=== PATIENT | male | born 1950 | race Caucasian/White ===

== ENCOUNTER 2016-11-04 00:18 | Day surgery (SDC) | payer MEDICARE, OTHER ==
[2016-11-04] VITALS (12 sets, daily range): BP systolic 108–132; BP diastolic 45–78; PULSE 50–66; RESP 12–18; O2SAT 92–99
[~2016-11-04] VITALS: Ht 188 cm; Wt 70.4 kg
[~2016-11-04 00:18] MED LIST: 0.9% Sodium Chloride 1,000 ML IV ONE; ASCO500C6 PO; ASPI-973 PO; CALC650T4 PO; CHOL200047 PO; CLOP75TA3 PO; ISOS20TA4 PO; LACT1CAP65 PO; LYSI1TAB2 PO; METO25TA3 PO; NITR0.4T6 SL; POTASSIUM MAGNESIUM PO; [UNRECOGNIZED DRUG - OTHER] PO; [UNRECOGNIZED DRUG - OTHER] PO; immuplex PO
[2016-11-04] MEDS ORDERED: 0.9% Sodium Chloride 1,000 ML IV ONE (06:20)
[2016-11-04 07:25] LABS: BASOPHILS % (AUTO) 0.9 % (0-3); EOSINOPHILS % (AUTO) 5.9 % (0-5); MONOCYTES % (AUTO) 8.3 % (4-12); Mean Corpuscular Hemoglobin 26.6 pg (27.0-35.0); Mean Corpuscular Volume 81.5 fL (81-100); NEUTROPHILS % (AUTO) 39.7 % (40-74); Platelet Count 402 bil/L (150-400)
[2016-11-04] MEDS ORDERED: Heparin 1,000 Unit/mL 10 mL Inj ONE (08:06)
[2016-11-04] MEDS ORDERED: Heparin 1,000 Units/500 mL NS Premix IV ONE (08:06)
[2016-11-04] MEDS ORDERED: fentaNYL-PF 50 mCg/mL 2 mL Inj ONE ×2 (08:27→09:37)
[2016-11-04] MEDS ORDERED: Nitroglycerin 50,000 mcg/250 mL D5W Premix IV ONE (08:39)
[2016-11-04] MEDS ORDERED: Heparin 5,000 Units/500 mL NS Premix IV ONE (09:20)
--- NOTE | 2016-11-04 11:10 | DI95 ---
[address] [address] INTERVENTIONAL CARDIAC CATHETERIZATION PATIENT: FRANKLYN PERES : 1950 MR#: [id number] ADMIT: 11/04/2016 JOB ID: [id number] CORRECTED REPORT DATE OF PROCEDURE: 11/04/2016 PATIENT PROFILE: The patient is a 66 years old male with history of hypercholesterolemia and prior smoking. He had stent placement to the left anterior descending artery on January 02, 2015. The patient developed recurrent angina six months ago. He was found to have left anterior descending artery and first diagonal branch bifurcation stenoses by angiogram on June 10, 2016. The planned intervention was postponed several times due to lower GI bleed. PROCEDURE: 1. Retrograde left heart catheterization. 2. Selective coronary angiography. 3. Balloon angioplasty and stenting to the left anterior descending. 4. Left ventricular angiogram. VASCULAR CLOSURE DEVICE: Perclose. COMPLICATION: None. METHOD: Retrograde left heart catheterization was performed from the right groin under 1% lidocaine local anesthesia using a 6-Swiss sheath. Selective coronary angiogram was performed in multiple projections, including cranial and caudal angulations with hand-injected contrast via JL4 and 3DRC catheters. Heparin 100 units/kg were given. A 6-Swiss JL4 guide was advanced to the left coronary ostium. A Runthrough wire was placed inside the left anterior descending artery. The mid and proximal left anterior descending artery lesions were pre-dilated with a 2.0 and a 2.5 mm balloons. A Xience 3.0 x 18 mm stent was placed inside the mid left anterior descending artery lesion and deployed at 12 atmospheres for 25 seconds. A Xience 3.0 x 12 mm stent was placed inside the proximal left anterior descending artery lesion and deployed at 15 atmospheres for 25 seconds. Nitroglycerin 100 mcg was given intracoronary. Final angiogram was obtained. A 5-Swiss angulated pigtail catheter was advanced to the left ventricle, and left ventricular angiogram was performed in a 30-degree SMITH view by injecting contrast at a rate of 10 cc/sec for 3 seconds. This catheter was withdrawn. Right femoral angiogram was performed. Following sheath removal, hemostasis was achieved by using a Perclose device. The patient tolerated the procedure well. He was transferred to [facility] in good condition. TOTAL CONTRAST USED: 175 cc. FLUOROSCOPY TIME: 6.7 minutes. RESULTS: 1. Selective coronary angiography: a. Left main coronary artery is short and normal. b. The left anterior descending artery is transapical and has severe 95% stenosis in the proximal portion and long 70% to 75% stenosis in the mid portion. The first diagonal branch is occluded. The second diagonal branch has minor irregularity. c. The codominant circumflex artery is normal. d. The codominant right coronary artery is normal. 2. Balloon angioplasty and stenting was performed to the mid and proximal left anterior descending artery lesions by deploying two drug-eluting stents (3.0 x 18 mm and 3.0 x 12 mm) to achieve an excellent angiographic result with VENKAT-3 flow distally. 3. Left ventricular angiogram demonstrates near normal left ventricular systolic function (visually estimated ejection fraction 65%). There is mild hypokinesis of the middle third of the anterolateral wall. 4. There is no gradient across the aortic valve on catheter withdrawal. 5. Aortic pressure is 137/71 mmHg. Left ventricular pressure is 137/4 mmHg. 6. Left ventricular end-diastolic pressure is 16 mmHg. CONCLUSION: 1. Severe stenosis of the proximal and mid left anterior descending artery. 2. This was successfully treated with two drug-eluting stents. 3. Left ventricular ejection fraction 65%. 4. LVEDP is 16 mmHg. Corrected by 12/17/2016 at 8:25am DOS. MTDD
--- NOTE | 2016-11-04 15:11 | NUR ---
Discharge Stable recovery post heart cath, VSS and WNL, groin site soft non tender. Pt and pt stated verbal understanding of discharge instructions regarding changes to home medications, signs of worsening condition and follow up appointments. Pt and left with personal belongings, discharge paperwork, IV dc'd intact at approximately 1430.
--- NOTE | 2016-11-05 12:55 | NUR ---
follow up call made pt doing well, light bruise reported at puncture site, no chest pain or shortness of breath.
== END 2016-11-04 23:59 | disposition home or self-care (01) ==
LOC: SOUO 00:18
PROVIDERS: ATTEND Internal Medicine Interventional Cardiology
DX: I25.119 Atherosclerotic heart disease of native coronary artery with unspecified angina pectoris (principal); Z95.5 Presence of coronary angioplasty implant and graft; E78.5 Hyperlipidemia, unspecified; Z79.82 Long term (current) use of aspirin; Z79.02 Long term (current) use of antithrombotics/antiplatelets; Z87.891 Personal history of nicotine dependence; K51.90 Ulcerative colitis, unspecified, without complications; I34.0 Nonrheumatic mitral (valve) insufficiency; Z79.52 Long term (current) use of systemic steroids; E78.00 Pure hypercholesterolemia, unspecified
CPT/HCPCS: 36415; 80048; 85025; 93005; 93458; 99152; 99153; C1725; C1760; C1769; C1874; C1887; C9600; J1644; J2250; J3010; J7030; Q9967

== ENCOUNTER 2017-01-03 16:09 | Inpatient (IN) | payer MEDICARE, OTHER ==
[~2017-01-03] VITALS: Ht 185.4 cm; Wt 68.9 kg
[~2017-01-03 16:09] MED LIST changes: -0.9% Sodium Chloride 1,000 ML IV ONE; -ISOS20TA4 PO
[2017-01-03 16:12] VITALS: BP 121/81; PULSE 61; RESP 16; O2SAT 100
--- NOTE | 2017-01-03 16:30 | ED.REPORT ---
HPI-Abd Pain M 40 and Over Date of Service January 03, 2017 ED Provider: Mary Torres MD The patient is a 66 year old male with history of ulcerative colitis, Crohn's disease, bladder cancer s/p local resection, prostate cancer s/p prostatectomy, coronary artery disease, and asthma, who presents to the emergency department complaining of abdominal pain that has been gradually worsening over the last 5 week. His pain is located to his LLQ. He describes the pain as "cramping." His pain has become more severe in the last week and he has also noticed maroon stools (x1 week) and diarrhea ([id number] about 3x daily). He has been seen multiple times in the past for similar symptoms. His cotton header is Dr. Webb. He started taking 40 mg 10 days ago and decreased it to 30 mg about 3 days ago. This has not improved his symptoms. He denies nausea, vomiting, chest pain, shortness of breath, weakness, dizziness, cough, fever or chills. The patient recently had cardiac stents placed and is currently taking Plavix. The patient also reports left foot pain. He has had this pain intermittently for the last several years. Nursing Notes Stated Complaint: CHRON'S FLARE UP/BLEEDING, PAINFUL FOOT JOINT Chief Complaint: Male Abdominal Pain Nursing Notes Reviewed: Yes Allergies: Coded Allergies: Sulfa (Sulfonamide Antibiotics) (Verified Allergy, Severe, SOB, Swelling, 07/29/16) valacyclovir (Verified Allergy, Severe, Rash,Itching,, 07/29/16) Scheduled ([cataplex F]) 2 TAB PO DAILY OTC supplement ([Potassium Magnesium]) 1 TAB PO DAILY Ascorbic Acid (Vitamin C) 500 Mg Capsule.er 1,000 MG PO DAILY Aspirin (Aspirin) 81 Mg Tablet 81 MG PO DAILY Calcium Lactate (Calcium Lactate) 84 Mg Tablet 84 MG PO BID Cholecalciferol (Vitamin D3) (Vitamin D3) 2,000 Unit Capsule 4,000 UNIT PO DAILY Clopidogrel Bisulfate (Plavix) 75 Mg Tablet 75 MG PO DAILY Lactobacillus Acidophilus (Probiotic) 1 Each Capsule 1 CAPSULE PO DAILY Lysine/Vit E/FA/Vit Bcomp&C/Zn (Lysiplex Plus Tablet) 1 Each Tablet 1 TABLET PO DAILY Metoprolol Succinate ER (Toprol XL) 25 Mg Tablet 25 MG PO DAILY Prednisone (PredniSONE) 10 Mg Tablet 30 MG PO DAILY Scheduled PRN Nitroglycerin SL (Nitroglycerin SL) 0.4 Mg Tab.subl 0.4 MG SL q5 x3 PRN PRN For Chest Pain General Time Seen by MD: 16:29 Chief Complaint Abdominal pain Hx Obtained From: Patient Arrived By: Walk-in Sudden in Onset?: Yes Onset Occurred: 1 week ago Symptom Duration: Since onset Progression since Onset: Constant, Gradually worsening Quality: Painful Severity: Current: Moderate Severity: Maximum: Pain scale Recent Healthcare: No recent hospitalization, Recent doctor visit Similar Sx Previous: Yes Past Medical History Past Medical History Notes: Senior Power Plant Operator: Dr. Webb Lidar Analyst: Dr. Calderon Past Medical History Ulcerative colitis. Crohn's. Bladder cancer for 12 years, status post local resection. Prostate cancer status post prostatectomy. Depression. Reports: Asthma, Coronary artery disease Past Surgical History - Salivary gland surgery - Cardiac stent in [facility], Jan 05 2016, 90% occlusion - Bladder and prostate surgery. Reports: Inguinal hernia repair, Prostatectomy, Tonsillectomy Family History CHF Reports: Coronary artery disease Smoking History Former Smoker Social History Alcohol Use: In recovery Drug Use: Denies drug use Other Social History: Poor social support, , Local resident Ambulatory Status Independent Review of Systems Review of Systems Note: +dark maroon stools Constitutional: Denies: Chills, Fever, Weakness - generalized Respiratory: Denies: Non-productive cough, Prod cough, white Cardiovascular: Denies: Chest pain GI: Reports: Abdominal pain, Diarrhea, Denies: Nausea, Vomiting Musculoskeletal: Reports: Extremity pain Complete sys rev & neg: except as marked. Neurologic: Denies: Dizziness, Weakness Physical Exam Initial Vital Signs Vital Signs (First) Date Time Temp Pulse Resp B/P Pulse Ox O2 Delivery O2 Flow Rate FiO2 01/03/17 16:12 36.0 61 16 121/81 100 01/03/17 18:07 Room Air Initial VS: Reviewed, Vital signs normal Head / Eyes: Atraumatic, Normocephalic, PERRL ENT: Mucous membranes moist, Conjunctiva normal, No scleral icterus Neck: Supple, Non-tender, Full range of motion Lymphatic: No lymphadenopathy Extremities: Vascular intact, Neuro intact, No swelling, No tenderness Skin: Warm, Dry, No cyanosis Neurologic: Alert, Oriented, Nonfocal Psychiatric: Mood/affect normal, Behavior normal, Normal thought content General/Constitutional: Awake, Alert, Cooperative Respiratory / Chest: Atraumatic, Breath sounds NL, Breath sounds = bilat, No respiratory distress, No rales, No rhonchi, No wheezing Cardiovascular: Heart rate NL, Regular rhythm, Heart sounds NL, No gallop, No murmurs, No rubs, Peripheral circulation NL Abdomen: Soft, No guarding, No rebound, BS normoactive, No distention, No hernia, No palpable mass, No pulsatile mass Lower abdominal discomfort. Back: Inspection NL, Non-tender, No CVA tenderness Rectal for Blood: Positive: Blood - occult heme + RECTUM: Some gross blood, no stool. Ankle / Foot: Neurologic intact, Vascular intact Left great toe MTP is slightly warmer and slightly swollen. No erythema. Interpretation & Diagnostics Lab Results Interpretation Result Diagram: 01/03/17 1629 01/03/17 1629 Test 01/03/17 16:29 01/03/17 18:17 White Blood Count 12.2th/mm3 (3.8-10.1) Red Blood Count 4.83mil/mm3 (4.40-5.80) Hemoglobin 12.9g/dL (13.8-17.2) Hematocrit 39.8% (41.0-50.0) Mean Corpuscular Volume 82.4fL (81-100) Mean Corpuscular Hemoglobin 26.7pg (27.0-35.0) Mean Corpuscular Hemoglobin Concent 32.4% (32.0-37.0) Red Cell Distribution Width 13.9% (12.3-15.4) Platelet Count 416bil/L (150-400) Neutrophils (%) (Auto) 82.2% (40-74) Lymphocytes (%) (Auto) 11.9% (14-46) Monocytes (%) (Auto) 4.5% (4-12) Eosinophils (%) (Auto) 0.5% (0-5) Basophils (%) (Auto) 0.4% (0-3) Prothrombin Time 10.4sec (8.1-12.5) Prothromb Time International Ratio 0.97ratio Sodium Level 137mEq/L (134-144) Potassium Level 4.0mEq/L (3.5-5.2) Chloride Level 98mEq/L (97-108) Carbon Dioxide Level 26mmol/L (18-29) Blood Urea Nitrogen 16mg/dL (8-27) Creatinine 0.71mg/dL (0.76-1.27) Estimat Glomerular Filtration Rate 117mL/min (>59) Glucose Level 106mg/dL (60-99) Calcium Level 9.6mg/dL (8.5-10.1) Magnesium Level 2.0mg/dL (1.6-2.6) Total Bilirubin 0.3mg/dL (0.0-1.2) Aspartate Amino Transf (AST/SGOT) 14U/L (0-50) Alanine Aminotransferase (ALT/SGPT) 16U/L (0-44) Alkaline Phosphatase 68U/L (25-160) Total Protein 7.3g/dL (6.4-8.4) Albumin 4.0g/dL (3.4-5.0) Lipase 48U/L (13-60) Urine Color Yellow (YELLOW) Urine Appearance Clear (CLEAR,HAZY) Urine pH 6.5 (5.0-8.0) Urine Specific [place] <1.005 (1.003-1.035) Urine Protein Negativemg/dL (NEG,TRACE) Urine Glucose (UA) Negativemg/dL (NEGATIVE) Urine Ketones Negativemg/dL (NEGATIVE) Urine Occult Blood Negative (NEGATIVE) Urine Nitrite Negative (NEGATIVE) Urine Bilirubin Negative (NEGATIVE) Urine Urobilinogen Normalmg/dL (NORMAL) Urine Leukocyte Esterase Negative (NEGATIVE) Urine RBC 0-2/hpf (0-2) Urine WBC 0-5/hpf (0-5) Urine Epithelial Cells Few/hpf (NONE-MOD) Urine Crystals None seen (NONE SEEN) Urine Bacteria Few/hpf (NONE-FEW) Urine Hyaline Casts None/lpf (NONE) Urine Granular Casts None seen (NONE SEEN) Urine Waxy Casts None seen (NONE SEEN) Urine Red Blood Cell Casts None seen (NONE SEEN) Urine White Blood Cell Casts None seen (NONE SEEN) Urine Mucus None seen (None Seen) Urine Trichomonas None seen (NONE SEEN) Urine Yeast None (NONE SEEN) Urinalysis Comment None Urine Culture Reflexed Not indicated Re-Eval/Medical Decision Med Decision/Clinical Course The patient has a Crohn's exacerbation and he is failing outpatient treatment. Dr. Mcelroy who recommended IV hydrocortisone. The patient has bright blood per rectum, he is on Plavix however given his recent stenting is unlikely that be able to be stopped. He has only a minor anemia at this point. Patient does not have any signs of systemic infection. Source of Hx: Old records Time of Eval: 19:37 Re-Evaluation/Progress Note: Rechecked the patient. Discussed plan for admission. All questions were addressed. He reports using mesalamine enemas for the last 5 days. Consultation #1: Referral / Consult Name: Paddy Webb MD Call Returned at: 19:02 Traffic Safety Administrator: Will see patient, Agrees with eval, Agrees with plan Note: Spoke with the on-call cotton header. He would like the patient admitted for IV steroids and stool PCR. He will see the patient tomorrow. Consultation #2: Referral / Consult Name: Monica Chen DO Consulted With: Hospitalist Call Returned at: 19:47 Traffic Safety Administrator: Will see patient, Agrees with eval, Agrees with plan, Accepts admit Counseled Regarding: Diagnosis, Lab results, Need for admission Discharge & Departure Primary Impression: Exacerbation of Crohn's disease Digestive disease complication type: unspecified complication Qualified Code : K50.919 - Crohn's disease, unspecified, with unspecified complications Disposition: ADMITTED TO HOSPITAL Vital Signs - All Vital Signs Date Time Temp Pulse Resp B/P Pulse Ox O2 Delivery O2 Flow Rate FiO2 01/03/17 18:07 60 20 118/67 100 Room Air 01/03/17 16:12 36.0 61 16 121/81 100 )( All Prior VS Reviewed: Yes Condition: Stable Referrals: Noble Bolivar MD (PCP) Paddy Webb MD Attestation Portions of this note were transcribed by Chelo Rubio. I, Dr. Torres personally performed the history, physical exam and medical decision-making; I reviewed and confirmed the accuracy of the information in the transcribed note. Signed by: Alise Le, 01/03/2017 at 2000. copies to: Noble Bolivar MD; Paddy Webb MD, Jena M MD January 03, 2017 16:30 Chelo Rubio January 03, 2017 16:33
[2017-01-03] MEDS ORDERED: 0.9% Sodium Chloride 1,000 ML IV ONE (16:50)
[2017-01-03 17:19] LABS: BASOPHILS % (AUTO) 0.4 % (0-3); EOSINOPHILS % (AUTO) 0.5 % (0-5); MONOCYTES % (AUTO) 4.5 % (4-12); Mean Corpuscular Hemoglobin 26.7 pg (27.0-35.0); Mean Corpuscular Volume 82.4 fL (81-100); NEUTROPHILS % (AUTO) 82.2 % (40-74); Platelet Count 416 bil/L (150-400)
[2017-01-03 17:23] LABS: INR 0.97 ratio
[2017-01-03 18:07] VITALS: BP 118/67; PULSE 60; RESP 20; O2SAT 100
[2017-01-03 18:49] LABS: COLOR,URINE YELLOW (YELLOW)
[2017-01-03 18:50] LABS: APPEARANCE,URINE CLEAR (CLEAR,HAZY); OCCULT BLOOD,URINE NEGATIVE (NEGATIVE); PH,URINE 6.5 (5.0-8.0); UROBILINOGEN,URINE NORMAL (NORMAL)
[2017-01-03] MEDS ORDERED: Hydrocortisone 50 mg/mL 2 mL Inj IVPUSH ONE (19:05)
[2017-01-03 19:57] VITALS: BP 122/74; PULSE 60; RESP 19; O2SAT 99
[2017-01-03] MEDS ORDERED: Ondansetron 2 mg/mL 2 mL Inj IVPUSH PRN (20:20)
[2017-01-03] MEDS ORDERED: Alum-Mag Hydrox-Simeth 30 mL Suspension PO PRN (20:20)
[2017-01-03 20:43] VITALS: BP 122/74; PULSE 60; RESP 19; O2SAT 99
[2017-01-03 20:51] VITALS: BP 145/83; PULSE 56; RESP 18; O2SAT 100
[2017-01-03] MEDS: 0.9% Sodium Chloride 1,000 ML IV SCH (20:57)
[2017-01-03] MEDS ORDERED: CLOP75TA3 PO (21:12)
[2017-01-03] MEDS ORDERED: POTASSIUM MAGNESIUM PO (21:12)
[2017-01-03] MEDS ORDERED: PRE10 PO (21:12)
--- NOTE | 2017-01-03 22:30 | PCM.HPMED ---
Subjective Date of Service January 03, 2017 Primary Provider: Admitting Physician: Monica Chen DO Primary Care Physician: Noble Bolivar MD Attending Physician: Monica Chen DO Admit Status: From the Emergency Department, Remote Telemetry Chief Complaint: Crohn's flare History of Present Illness: "Mc" is a 66 year old male with history of Crohn's disease, bladder cancer s/ p local resection, prostate cancer s/p prostatectomy, coronary artery disease, who presents to the ED complaining of abdominal pain that has been gradually worsening over the last 5 weeks. Pain is located to his LLQ. He describes the pain as "deep and cramping." His pain has become more severe in the last week and he has also noticed maroon stools (10 days) and loose stools ([id number] about 3x daily). He has been seen multiple times in the past for similar symptoms. His environmental compliance inspector is Dr. Webb. He started taking 40 mg 10 days ago and decreased it to 30 mg about 3 days ago, also tried mesalamine suppositories for 4-5 days without any improvement in his symptoms. He denies nausea, vomiting, chest pain, shortness of breath, weakness, dizziness, cough, fever or chills. The patient recently (11/04/16) had cardiac stents placed and is currently taking Plavix, which patient has reduced to every other day 5 days ago due to his ongoing rectal bleed. The patient also reports left MTP pain. He has had this pain intermittently for the last several years. This has worsened since his Crohn's flare up, and makes it difficult for him to walk on. Patient has refrained from taking any anti- inflammatory medication for this, due to his bleeding, and has been applying topicla pain reliever. Patient reports this has been followed by Dr. Kinsey and has discussed surgery after his CAD is stabilized. In the ED, vital signs normal with labs significant for WBC 12.2, H/H 12.9/ 39.8. FOBT positive for occult blood. Dr. Webb was informed and patient started on 100mg hydrocortisone Q8H per his recommendations. Dr. Webb to see patient in am. Patient admitted for further treatment and management. Review of Systems: A comprehensive review of systems has been conducted with the patient and found to be negative except what is mentioned in the HPI. Allergies Coded Allergies: Sulfa (Sulfonamide Antibiotics) (Verified Allergy, Severe, SOB, Swelling, 07/29/16) valacyclovir (Verified Allergy, Severe, Shortness of Breath, 01/03/17) Home Medications ([cataplex F]) 2 TAB PO DAILY OTC supplement ([Potassium Magnesium]) 1 TAB PO DAILY Ascorbic Acid (Vitamin C) 500 Mg Capsule.er 1,000 MG PO DAILY Aspirin (Aspirin) 81 Mg Tablet 81 MG PO DAILY Calcium Lactate (Calcium Lactate) 84 Mg Tablet 84 MG PO BID Cholecalciferol (Vitamin D3) (Vitamin D3) 2,000 Unit Capsule 4,000 UNIT PO DAILY Clopidogrel Bisulfate (Plavix) 75 Mg Tablet 75 MG PO DAILY - patient has been taking every other day for psat 5 days due to active bleeding Lactobacillus Acidophilus (Probiotic) 1 Each Capsule 1 CAPSULE PO DAILY Lysine/Vit E/FA/Vit Bcomp&C/Zn (Lysiplex Plus Tablet) 1 Each Tablet 1 TABLET PO DAILY Metoprolol Succinate ER (Toprol XL) 25 Mg Tablet 25 MG PO DAILY Prednisone (PredniSONE) 10 Mg Tablet 30 MG PO DAILY Scheduled PRN Nitroglycerin SL (Nitroglycerin SL) 0.4 Mg Tab.subl 0.4 MG SL q5 x3 PRN PRN For Chest Pain PMH Crohn's disease (diagnosed at 38) Bladder cancer for 12 years, s/p local resection Prostate cancer s/p prostatectomy Depression CAD s/p 3 stents Surgical History Cardiac stent one in 2014, 2 in 10/[address] Calderon Bladder and prostate surgery Inguinal hernia repair Family History mother and maternal grandmother with heart disease cousin with Crohn's Social History Hx Alcohol Use: No (not for 34 years) Hx Substance Use: No Hx Tobacco Use: Yes Smoking Status: Former Smoker Living Arrangement: with Family Exam Vital Signs Vital Sign - Last Date Time Temp Pulse Resp B/P Pulse Ox O2 Delivery O2 Flow Rate FiO2 01/03/17 20:51 36.6 56 18 145/83 100 Room Air Exam GEN: Awake, alert in no acute distress HEENT: NC/AT, PERRL, moist mucous membranes, sclera anicteric Neck: Supple, Non-tender, Full range of motion, no lymphadenopathy CV: Regular rhythm, S1, S2, No gallop, murmurs, or rubs, Radial and dorsal pedis pulses intact and normal. Lungs: CTAB, breath sounds bilaterallly. No respiratory distress. Abd: Mild tenderness to deep palpation at LLQ. soft, no guarding or rebound. Normoactive bowel tones, no distention. Extremities: Vascular intact, Neuro intact, Mild swelling and heat noted at MTP of 1st digit on left foot Skin: Warm, Dry, No cyanosis Neurologic: Alert, Oriented, Nonfocal Psychiatric: Mood/affect normal, Behavior normal, Normal thought content. Lab and Diagnostics Result Diagram: 01/03/17 1629 01/03/17 1629 Assessment & Plan "Mc" is a 66 year old male with history of Crohn's disease, bladder cancer s/ p local resection, prostate cancer s/p prostatectomy, CAD with stents, who presents to the ED complaining of abdominal pain that has been gradually worsening over the last 5 weeks. Patient has been having maroon stools for the past 10 days. Crohn's disease flare up, present on admission. Acute. - Patient started on hydrocortisone 100mg Q8H per Dr. Webb. Patient to be seen in am. - Leukocytosis with WBC 12.2 most likely due to current prednisone use - Continue home dose balsalazide 750mg three tablets TID - PCR stool pending - CBC in am Anemia, present on admission. Acute. - most likely due to recent ongoing GI bleed - continue to monitor H/H with CBC in am Chronic issues: CAD with stents - remote telemetry - continue home dose metoprolol, Plavix and aspirin continued given new stent placement -continue to monitor H&H Left MTP pain - hydrocortisone may relieve some of the pain - Volteran gel to be applied BID Patient status: Patient was admitted under inpatient status with expected length of stay greater than to midnights due to severity of presenting symptoms , risk of adverse event, and complexity of treatment plan. Pain Evaluation: Adequate Pain Control GI Prophylaxis: Not indicated VTE Prophylaxis: SCDs VTE Mechanical Devices: Intermittant Pneumatic CD Resuscitation Status: CPR: Attempt Resuscitation Attending Statement The patient was seen and examined together with house staff on 01/03/2017 and I agree with the history, exam and plan as outlined in the note above. copies to: Noble Bolivar MD, Fumiko O DO January 03, 2017 21:52 Monica Chen DO January 04, 2017 04:15
[2017-01-03] MEDS: Hydrocortisone 50 mg/mL 2 mL Inj IVPUSH SCH (22:42)
[2017-01-03] MEDS ORDERED: BALS750C PO (23:08)
[2017-01-03 23:23] VITALS: PULSE 62
--- NOTE | 2017-01-03 23:47 | NUR ---
Admit Note Pt. arrived on floor at 2044. Pt. was alert and oriented x3. Pt.'s peripheral IV intact and patent. IV fluids started. Will continue to monitor.
[2017-01-04] VITALS (8 sets, daily range): BP systolic 107–133; BP diastolic 60–70; PULSE 52–78; RESP 16–17; O2SAT 95–100
[2017-01-04] MEDS: Hydrocortisone 50 mg/mL 2 mL Inj IVPUSH SCH ×3 (05:46→21:24)
[2017-01-04 06:21] LABS: BASOPHILS % (AUTO) 0 % (0-3); EOSINOPHILS % (AUTO) 0 % (0-5); MONOCYTES % (AUTO) 4.6 % (4-12); Mean Corpuscular Hemoglobin 26.8 pg (27.0-35.0); Mean Corpuscular Volume 81.5 fL (81-100); Platelet Count 361 bil/L (150-400)
[2017-01-04] MEDS: 0.9% Sodium Chloride 1,000 ML IV SCH ×2 (06:48→16:46)
[2017-01-04] MEDS: MeTOProlol XL 25 mg ER24 Tablet PO SCH (09:05)
--- NOTE | 2017-01-04 10:01 | NUR ---
Social Work-initial assessment: Data:See initial assessment. pt is a 66 y/o male who was admitted on 01/03/17 for crohns flare per H&P. Pt's insurance is [employer] and [employer] and PCP is Noble Bolivar MD. EMR Reviewed. SW met with pt to discuss discharge planning, SW role explained. Pt is alert and oriented x3. Pt resides at home with his where he remains independent with ADLS. Pt drives and does not use any DME. Pt has no HH or SNF history. Pt has no [facility] care or [facility] benefits. SW discussed DPOA/ advanced directive, pt has not completed this, SW provided pt with a copy. Pt has been up independent in his room. Pt states his will provide transport home at discharge. SW provided phone number and plan on white board in room. No anticipated discharge needs. SW will continue to follow if needs arise. Assessment:Pt who is independent at baseline. Plan:Pt to discharge home when medically stable via POV. No anticipated discharge needs. SW will continue to follow if needs arise. DANNI Deluna Addendum: 01/04/17 at 1006 by COOKIE TOTH Amended: Links added.
--- NOTE | 2017-01-04 14:24 | PCM.CHPMED ---
Subjective Date of Service: January 04, 2017 Primary Physician: Admitting Physician: Monica Chen DO Primary Care Physician: Noble Bolivar MD Attending Physician: Monica Chen DO Chief Complaint: Chief Complaint: GI bleed History of Present Illness: GI consult note 66-year-old male with a history of Crohn's disease with flares controlled with prednisone, bladder cancer s/p local resection, prostate cancer s/p prostatectomy, and CAD who presented to the emergency department with complaints of abdominal pain has been getting worse over the last 2 weeks. Patient states 5 weeks ago he began having bowel movements with some admixed with stool. He was given prednisone 40 mg a day with some resolution of the symptoms initially. After about a week he started tapering off the steroids and began having worse abdominal pain, cramping, hematochezia. Patient states that over the last couple weeks the pain has gotten worse over the last few days has gotten acutely worse. 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 Patient has not been taking NSAIDs and has not a past been less receptive to immunomodulators. Recently the patient underwent cardiac stenting as currently on Plavix. Over the last couple of days he has refused to take Plavix every other day thinking that this would help stop his bleeding. Discussion was held the patient of the importance of continuing to take Plavix due to his recent stent in October. Patient denies chest pain, shortness breath, fever, chills, dizziness, nausea/vomiting, or abdominal pain this morning. Review of Systems: See history of present illness PMH Past Medical History Crohn's disease (diagnosed at 38) Bladder cancer for 12 years, s/p local resection Prostate cancer s/p prostatectomy Depression CAD s/p 3 stents Surgical History Cardiac stent one in 2014, 2 in 10/[address] Calderon Bladder and prostate surgery Inguinal hernia repair Home Medications Ascorbic Acid (Vitamin C) 500 Mg Capsule.er 1,000 MG PO DAILY Aspirin (Aspirin) 81 Mg Tablet 81 MG PO DAILY Calcium Lactate (Calcium Lactate) 84 Mg Tablet 84 MG PO BID Cholecalciferol (Vitamin D3) (Vitamin D3) 2,000 Unit Capsule 4,000 UNIT PO DAILY Clopidogrel Bisulfate (Plavix) 75 Mg Tablet 75 MG PO DAILY - patient has been taking every other day for psat 5 days due to active bleeding Lactobacillus Acidophilus (Probiotic) 1 Each Capsule 1 CAPSULE PO DAILY Lysine/Vit E/FA/Vit Bcomp&C/Zn (Lysiplex Plus Tablet) 1 Each Tablet 1 TABLET PO DAILY Metoprolol Succinate ER (Toprol XL) 25 Mg Tablet 25 MG PO DAILY Prednisone (PredniSONE) 10 Mg Tablet 30 MG PO DAILY Nitroglycerin SL (Nitroglycerin SL) 0.4 Mg Tab.subl 0.4 MG SL q5 x3 PRN PRN For Chest Pain Allergies: Coded Allergies: Sulfa (Sulfonamide Antibiotics) (Verified Allergy, Severe, SOB, Swelling, 07/29/16) valacyclovir (Verified Allergy, Severe, Shortness of Breath, 01/03/17) Family History Family History mother and maternal grandmother with heart disease cousin with Crohn's Social History Hx Alcohol Use: No (not for 34 years)Hx Substance Use: NoHx Tobacco Use: Yes Smoking Status: Former Smoker Living Arrangement: with Family Exam Vital Signs Vital Sign - Last Date Time Temp Pulse Resp B/P Pulse Ox O2 Delivery O2 Flow Rate FiO2 01/04/17 12:02 36.4 66 16 111/62 95 Room Air Intake and Output 01/03/17 01/03/17 01/04/17 Cumulative From/Thru 15:00 23:00 07:00 01/03/17 16:12 - 01/04/17 06:01 Intake Total 1000 ml 1072 ml 2072 ml Output Total 680 ml 680 ml Balance 1000 ml 392 ml 1392 ml Intake Oral 200 ml 200 ml IV Total 1000 ml 872 ml 1872 ml Output Urine Total 680 ml 680 ml # Bowel Movements 0 0 General: Alert, Oriented X3, Cooperative Head: Normal Eyes: PERRLA Mouth: Mucous Membr Moist/[place] Chest & Lungs: Chest Wall Normal, Clear to auscultation & percussion Cardiovascular: Exam Unremarkable, Regular Rate/Rhythm Abdomen: Tender (in the left upper quadrant), Non-distended, Normoactive bowel tones Musculoskeletal: Unremarkable Extremities: No cyanosis/clubbing/edma bilat Neurological: Grossly Neurologically Intact Lab and Diagnostics Result Diagram: 01/04/1754701/04/17547 Assessment & Plan Assessment 66-year-old male with a history of Crohn's disease as well as prostate and bladder cancer with recent cardiac stent placement on Plavix who presents with dynamic rectal bleeding occurring over the last 5 weeks. Currently the patient has a modest drop in his hemoglobin, currently at 10.6. INR was normal at 0.97. Patient was started on hydrocortisone 100 mg IV every 8 per GI recommendations. Patient's white count is moderately elevated which is likely due to his use of prednisone at home. However the balsalazide does not appear to have been started. Currently recommend that the patient be started on Remicade to help in the treatment of his Crohn's disease. Discussed with the patient for approximately 20 minutes this morning and is evident that the patient does not wish to start Remicade, instead opting to try additional diet modifications. Discussed the pathophysiology of Crohn's disease and the need to use some form of immune modulator. Will discuss with patient again this evening. In the meantime the patient should receive supportive care including blood transfusions if needed, although this point do not feel like this is likely. We will reevaluate tomorrow morning to make additional recommendations. 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 Agree with assessment and plan as described by Dr Gaming. Would hold off on antibiotic for the Yersinia enterocolitica infection. Usually, this is going to spontaneously resolve. Continue IV hydrocortisone for now. Would ensure full dose balsalazide TID. If continuing to improve, would convert to prednisone tomorrow. Ayaan Gaming DO January 04, 2017 14:23 Paddy Webb MD January 04, 2017 18:41
--- NOTE | 2017-01-04 17:51 | PCM.PNMED ---
Subjective Date of Service January 04, 2017 Subjective Patient seen and examined, patient is doing well without any repeat episodes of melena. Patient otherwise is passing flatus and his abodminal pain is improved. Exam Vital Signs Vital Sign - Last Date Time Temp Pulse Resp B/P Pulse Ox O2 Delivery O2 Flow Rate FiO2 01/04/17 16:07 36.7 66 17 123/70 100 Room Air Intake and Output 01/03/17 01/03/17 01/04/17 Cumulative From/Thru 15:00 23:00 07:00 01/03/17 16:12 - 01/04/17 06:01 Intake Total 1000 ml 1072 ml 2072 ml Output Total 680 ml 680 ml Balance 1000 ml 392 ml 1392 ml Intake Oral 200 ml 200 ml IV Total 1000 ml 872 ml 1872 ml Output Urine Total 680 ml 680 ml # Bowel Movements 0 0 Exam GEN: Awake, alert in no acute distress HEENT: NC/AT, PERRL, moist mucous membranes, sclera anicteric Neck: Supple, Non-tender, Full range of motion, no lymphadenopathy CV: Regular rhythm, S1, S2, No gallop, murmurs, or rubs, Radial and dorsal pedis pulses intact and normal. Lungs: CTAB, breath sounds bilaterallly. No respiratory distress. Abd: Mild tenderness to deep palpation at LLQ. soft, no guarding or rebound. Normoactive bowel tones, no distention. Extremities: Vascular intact, Neuro intact, Mild swelling and heat noted at MTP of 1st digit on left foot Skin: Warm, Dry, No cyanosis Neurologic: Alert, Oriented, Nonfocal Psychiatric: Mood/affect normal, Behavior normal, Normal thought content. IVs and Medications Medications Reviewed: Medications were reviewed in detail Lab and Diagnostics Result Diagram: 01/04/17 0548 01/04/17 0548 Assessment & Plan "Mc" is a 66 year old male with history of Crohn's disease, bladder cancer s/ p local resection, prostate cancer s/p prostatectomy, CAD with stents, who presents to the ED complaining of abdominal pain that has been gradually worsening over the last 5 weeks. Patient has been having maroon stools for the past 10 days. Crohn's disease flare up, present on admission. Acute. - Patient started on hydrocortisone 100mg Q8H per Dr. Webb, Dr Webb will see patient later today - Leukocytosis with WBC 12.2 most likely due to current prednisone use - Continue home dose balsalazide 750mg three tablets TID - PCR stool pending- CBC in am Anemia, present on admission. Acute. - most likely due to recent ongoing GI bleed - continue to monitor H/H with CBC in am Infectious agent - pt found to have yersinia grow from patients stool culture - can not exclude infectious process that may be causing melena - pt told that he need to be on Cipro however patient is adament that he does not want to take Cipro - will start on Ceftriaxone 2 gm IV daily Chronic issues: CAD with stents - remote telemetry - continue home dose metoprolol, Plavix and aspirin continued given new stent placement -continue to monitor H&H Left MTP pain - hydrocortisone may relieve some of the pain - Volteran gel to be applied BID Patient status: Patient was admitted under inpatient status with expected length of stay greater than to midnights due to severity of presenting symptoms , risk of adverse event, and complexity of treatment plan. GI Prophylaxis: Not indicated VTE Prophylaxis: SCDs VTE Mechanical Devices: Intermittant Pneumatic CD Resuscitation Status: CPR: Attempt Resuscitation Ramón Cannon MD January 04, 2017 17:51
[2017-01-04] MEDS: cefTRIAXone Inj 2,000 MG in Dextrose 5% 50 ML IV SCH (17:55)
[2017-01-04] MEDS ORDERED: cefTRIAXone Inj 2,000 MG in Dextrose 5% Minibag Plus 50 ML IV SCH (17:55)
--- NOTE | 2017-01-04 18:03 | NUR ---
GI/ACTIVITY/CRITICAL LAB Patient stated that his pain is 2-3/10 over the L side of his abdomen. He describes it as cramping and does not need any pain medication for this. + Flatus and BM. + 1 BM this morning, bloody per patient, which is not new for him. Denies nausea. No emesis noted. Patient rated his L foot pain as 1/10 after the Voltaren gel was started. Patient stated that he has been able to move his toes and L foot more easier after he was started on Solucortef IV and the Voltaren gel. Per patient he will follow up with Dr. Kinsey on an outpatient basis. Tolerating liquids PO and his diet well. Denies nausea. No emesis noted. Denies SOB. Patient has been able to get OOB and ambulate independently in the room. Gait is steady. Voiding without any problems. Patient is on remote tele. Per teletypesetter monitor patient is on sinus rhythm; HR-60's. Dr. Cannon was made aware RE: + YERSINIA ENTEROCOLITICA in his stool. IV ABT will be started. Care continues.
--- NOTE | 2017-01-04 18:14 | NUR ---
pt refused to pee in urinal for accurate output but did let me know when he voided Addendum: 01/04/17 at 1814 by MARCO ANTONIO VALENCIA CNA Amended: Links added.
--- NOTE | 2017-01-04 18:46 | NUR ---
ANTIBIOTIC Patient was seen and examined by Dr. Webb this afternoon. Patient refused IV ABT. He is aware of benefits versus risks.
[2017-01-05] MEDS: 0.9% Sodium Chloride 1,000 ML IV SCH (03:44)
--- NOTE | 2017-01-05 04:02 | NUR ---
Activity Patient denies pain at this time. Patient does request IV to be d/c'd . Will address this with day shift. Call light within reach. Care continues.
[2017-01-05 04:49] VITALS: BP 111/61; PULSE 56; RESP 14; O2SAT 96
[2017-01-05] MEDS: Hydrocortisone 50 mg/mL 2 mL Inj IVPUSH SCH ×3 (06:09→20:39)
[2017-01-05] MEDS: MeTOProlol XL 25 mg ER24 Tablet PO SCH (09:10)
--- NOTE | 2017-01-05 10:10 | PCM.PNMED ---
Subjective Date of Service January 05, 2017 Subjective GI progress note Overnight patient did well with no complaints. Has not had an additional bloody bowel movements or any bowel movement at all really. Denies ongoing review of systems. States that he feels good enough to go home. Exam Vital Signs Vital Sign - Last Date Time Temp Pulse Resp B/P Pulse Ox O2 Delivery O2 Flow Rate FiO2 01/05/17 04:49 36.4 56 14 111/61 96 Room Air Intake and Output 01/04/17 01/04/17 01/05/17 Cumulative From/Thru 15:00 23:00 07:00 01/03/17 16:12 - 01/05/17 06:05 Intake Total 1910 ml 2036 ml 6018 ml Output Total 1750 ml 2430 ml Balance 1910 ml 286 ml 3588 ml Intake Oral 800 ml 800 ml 1800 ml IV Total 1110 ml 1236 ml 4218 ml Output Urine Total 1750 ml 2430 ml # Voids 5 5 # Bowel Movements 0 0 Exam General: Alert, Oriented X3, Cooperative Head: Normal Eyes: PERRLA Mouth: Mucous Membr Moist/[place] Chest & Lungs: Chest Wall Normal, Clear to auscultation & percussion Cardiovascular: Exam Unremarkable, Regular Rate/Rhythm Abdomen: Nontender, Non-distended, Normoactive bowel tones Musculoskeletal: Unremarkable Extremities: No cyanosis/clubbing/edma bilat Neurological: Grossly Neurologically Intact IVs and Medications Medications Reviewed: Medications were reviewed in detail Lab and Diagnostics Result Diagram: 01/04/17 0548 01/04/17 0548 Assessment & Plan 66 year old male with history of Crohn's with ongoing melena/hematochezia. Pt had initially decreased his maintenance dose of Balsalazide from TID to BID prior to the start of this flare. Pt also has PCR positive Yersinia enterocolitica although it is questionable as to how much this is playing into his current symptoms as patient is not toxic. Discussed use of Cipro and Ceftriaxone last night and patient does not wish to have either if he can avoid it. Review of literature did not recommend treating the infection unless the patient is toxic or requires ICU status. If patient wishes to be treated Bactrim is another option available and he seems more amenable to that over IV antibiotics. We will continue to follow along while the patient is in hospital. Will need to follow-up with GI within 2 weeks of discharge. Thank you for allowing us to participate in the care of this patient. GI Prophylaxis: Not indicated VTE Prophylaxis: SCDs VTE Mechanical Devices: Intermittant Pneumatic CD Resuscitation Status: CPR: Attempt Resuscitation Attending Statement Patient seen and examined. Agree with assessment and plan as described by Dr Gaming. Patient doing better. H/H down slightly, but no bm/bleeding today. Tolerating diet. Back on full dose balsalazide. From a GI perspective, can be d/c'd home at discretion of hospitalist. If he stays for the evening, i'd recommend he continue with the IV hydrocortisone at 20:30 then convert over to a tapering course of prednisone starting at 40mg/day tomorrow morning. Follow up in GI clinic in next 2 wks with CBC prior to visit. Ayaan Gaming DO January 05, 2017 08:28 Paddy Webb MD January 05, 2017 17:04
[2017-01-05 10:41] LABS: BASOPHILS % (AUTO) 0.1 % (0-3); EOSINOPHILS % (AUTO) 0 % (0-5); MONOCYTES % (AUTO) 5.2 % (4-12); Mean Corpuscular Hemoglobin 26.6 pg (27.0-35.0); Mean Corpuscular Volume 81.7 fL (81-100); NEUTROPHILS % (AUTO) 77.8 % (40-74); Platelet Count 329 bil/L (150-400)
[2017-01-05 10:46] VITALS: PULSE 65
--- NOTE | 2017-01-05 15:04 | NUR ---
spiritual care: pt request conversational visit. pt agreeable for caring rehabilitation therapy aide visit. he reported on coping and his sources of resilience which he listed as positive outlook, family/friends and insight about his body/disease process. pt expressed appreciation of support.
--- NOTE | 2017-01-05 15:48 | PCM.PNMED ---
Subjective Date of Service January 05, 2017 Subjective Follow up for Crohn fair up and GI bleed . Patient seen and examined at bedside. Somewhat better today.Some abdominal pain but overall improved. No CP, no SOB Exam Vital Signs Vital Sign - Last Date Time Temp Pulse Resp B/P Pulse Ox O2 Delivery O2 Flow Rate FiO2 01/05/17 10:46 65 01/05/17 04:49 36.4 14 111/61 96 Room Air Intake and Output 01/04/17 01/04/17 01/05/17 Cumulative From/Thru 15:00 23:00 07:00 01/03/17 16:12 - 01/05/17 06:05 Intake Total 1910 ml 2036 ml 6018 ml Output Total 1750 ml 2430 ml Balance 1910 ml 286 ml 3588 ml Intake Oral 800 ml 800 ml 1800 ml IV Total 1110 ml 1236 ml 4218 ml Output Urine Total 1750 ml 2430 ml # Voids 5 5 # Bowel Movements 0 0 Exam General: In bed comfortably. NAD , pleasant HEENT : [place] is anicteric Neck : Supple, trachea is midline , no JVD Mouth: Mucous Membrane Moist/[place] Chest & Lungs: Chest Wall Normal, Clear to auscultation & percussion Cardiovascular: Exam Unremarkable, Regular Rate/Rhythm Abdomen: Nontender, Non-distended, Normoactive bowel tones Extremities: No cyanosis, no edema, no calf tenderness Neurological: Grossly Neurologically Intact IVs and Medications Medications Reviewed: Medications were reviewed in detail Lab and Diagnostics Result Diagram: 01/05/17 1030 01/04/17 0548 Microbiology Stool culture positive for yersinia enterocolitica Assessment & Plan 1. Crohn's disease flare up, present on admission. Acute. - On hydrocortisone 100mg Q8H . Plan to switch to tapering dose of prednisone on discharge - Continue home dose balsalazide 750mg three tablets TID - Remicade is offered but patient declined 2. Gastroenteritis : Maximino positive for yersinia enterocolitica . Patient refused antibiotics but anyway I am not sure about what difference that would have made. He is clinically improving and diarrhea subsided 3. Acute GI bleed : Resolved Bleeding is likely due to Crohn flair up. H/H stable and no need for transfusion. He will need close follow up with GI on discharge Stopping ASA and clopidogrel is not an option in the patient with stent placement 2 months ago. Chronic issues: CAD with stents - remote telemetry - continue home dose metoprolol, Plavix and aspirin continued given new stent placement -continue to monitor H&H Patient is stable and improving. Continue current care. GI follow up . Discharge anticipated in AM Pain Evaluation: Adequate Pain Control GI Prophylaxis: Not indicated VTE Prophylaxis: SCDs VTE Mechanical Devices: Intermittant Pneumatic CD Resuscitation Status: CPR: Attempt Resuscitation Time spent 25 minutes Elvis Yancey MD January 05, 2017 15:48
[2017-01-05 16:22] VITALS: BP 110/51; PULSE 100; RESP 18; O2SAT 95
[2017-01-05] MEDS: cefTRIAXone Inj 2,000 MG in Dextrose 5% 50 ML IV SCH (17:38)
--- NOTE | 2017-01-05 18:22 | NUR ---
Antibiotic Refusal, Pain Patient refused IV antibiotic this shift despite education on benefits. Patient denies any bowel movements this shift, states that abdominal pain continues to be decreased from admission. Care is ongoing.
[2017-01-05 20:00] VITALS: PULSE 56
[2017-01-05 20:50] VITALS: BP 113/64; PULSE 58; RESP 20; O2SAT 99
--- NOTE | 2017-01-05 22:56 | NUR ---
GI pt has requested a stool softener saying he is not going as regularly as he is used to. MD notified. no new orders at this time. pt did have a small BM this evening. it was two small peices of BM that pt described as dark and sticky. nurse could visualize a small amount of ana rosa blood in the toilet as well. pt describes his abdominal pain as a 1/10, says it is much better now and tolerable. will continue to monitor.
[2017-01-06 01:05] VITALS: BP 102/55; PULSE 54; RESP 20; O2SAT 98
[2017-01-06] MEDS: Hydrocortisone 50 mg/mL 2 mL Inj IVPUSH SCH ×2 (04:38→21:32)
[2017-01-06 05:37] VITALS: BP 103/57; PULSE 52; RESP 20; O2SAT 97
[2017-01-06 07:10] LABS: Mean Corpuscular Hemoglobin 25.8 pg (27.0-35.0); Mean Corpuscular Volume 82.2 fL (81-100)
[2017-01-06] MEDS: MeTOProlol XL 25 mg ER24 Tablet PO SCH (08:33)
[2017-01-06 09:16] VITALS: BP 106/62; PULSE 55; RESP 18; O2SAT 93
[2017-01-06] MEDS: Famotidine Inj 20 MG in IV Premix 1 EACH IV SCH ×2 (09:23→20:30)
[2017-01-06] MEDS ORDERED: Polyethylene Glycol (PEG) 17 Gm Powder PO PRN (10:10)
[2017-01-06 10:17] VITALS: PULSE 58
--- NOTE | 2017-01-06 10:28 | PCM.PNMED ---
Subjective Date of Service January 06, 2017 Subjective pt doing well, abdom pain improving. no BM since wednesday, will add regimen. weaning steroids -denies cp/sob - refusing iv abx, will switch to cipro for yersinia Exam Vital Signs Vital Sign - Last Date Time Temp Pulse Resp B/P Pulse Ox O2 Delivery O2 Flow Rate FiO2 01/06/17 10:17 58 01/06/17 09:16 36.3 18 106/62 93 Room Air Intake and Output 01/05/17 01/05/17 01/06/17 Cumulative From/Thru 15:00 23:00 07:00 01/03/17 16:12 - 01/06/17 03:23 Intake Total 1200 ml 7218 ml Output Total 1700 ml 4130 ml Balance -500 ml 3088 ml Intake Oral 1200 ml 3000 ml IV Total 4218 ml Output Urine Total 1700 ml 4130 ml # Voids 5 # Bowel Movements 1 1 Exam General: In bed comfortably. NAD , pleasant HEENT : [place] is anicteric Neck : Supple, trachea is midline , no JVD Mouth: Mucous Membrane Moist/[place] Chest & Lungs: Chest Wall Normal, Clear to auscultation & percussion Cardiovascular: Exam Unremarkable, Regular Rate/Rhythm Abdomen: Nontender, Non-distended, Normoactive bowel tones Extremities: No cyanosis, no edema, no calf tenderness Neurological: Grossly Neurologically Intact IVs and Medications Medications Reviewed: Medications were reviewed in detail Lab and Diagnostics Result Diagram: 01/06/1762201/06/17622 Microbiology Stool culture positive for yersinia enterocolitica Assessment & Plan 1. Crohn's disease flare up, present on admission. Acute. - On hydrocortisone 100mg Q8H tapering dose to 80 BID then to prednisone on discharge - Continue home dose balsalazide 750mg three tablets TID - Remicade is offered but patient declined 2. Gastroenteritis : Stool positive for yersinia enterocolitica . - dc ceftriaxone, start cipro BID x 5 d (last dose on 01/10) 3. Acute GI bleed : monitor cbc, repeat at 4p today Bleeding is likely due to Crohn flair up. H/H repeat d/t downtrending. He will need close follow up with GI on discharge Stopping ASA and clopidogrel is not an option in the patient with stent placement 2 months ago. Chronic issues: CAD with stents - remote telemetry - continue home dose metoprolol, Plavix and aspirin continued given new stent placement -continue to monitor H&H Patient is stable and improving. Continue current care. GI follow up . Discharge anticipated tomorrow GI Prophylaxis: Not indicated VTE Prophylaxis: SCDs VTE Mechanical Devices: Intermittant Pneumatic CD Resuscitation Status: CPR: Attempt Resuscitation Time spent 35 minutes spent with eval and mgmt Elvis Venegas DO January 06, 2017 10:28
[2017-01-06] MEDS: Senna-Docusate 8.6-50 mg Tablet PO SCH ×2 (11:06→21:32)
[2017-01-06] MEDS ORDERED: Hydrocortisone 50 mg/mL 2 mL Inj IVPUSH SCH (12:20)
[2017-01-06 13:04] VITALS: BP 94/47; PULSE 73; RESP 20; O2SAT 97
--- NOTE | 2017-01-06 15:19 | NUR ---
Social Work-readiness for discharge: Data:EMR Reviewed. Pt is on day 3 of hospitalization for crohns flare per H&P. Pt is not medically stable anticipate 1-2 more days. Pt resides at home with his where he remains independent with ADLS. Pt has been up ambulating in his room, independent. No discharge needs identified. SW will continue to follow if needs arise. Assessment:Pt who is independent at baseline. Plan:Pt to discharge home when medically stable via POV. No discharge needs identified. SW will continue to follow if needs arise. DANNI Deluna
--- NOTE | 2017-01-06 16:38 | NUR ---
Bowel Movement, Bradycardia Patient had one bowel movement this shift after stool softener administration. Stool dark, no ana rosa blood visualized in stool, patient reports small amount of ana rosa blood on toilet paper when wiping. Patient continues to have runs of bradycardia this shift, monitor and storage bin tender reporting as low as 38 at one point. Patient alert and oriented, asymptomatic. Hospitalist paged, no new orders at this time. Care is ongoing.
[2017-01-06 16:41] LABS: Mean Corpuscular Hemoglobin 26.5 pg (27.0-35.0); Mean Corpuscular Volume 82.3 fL (81-100)
--- NOTE | 2017-01-06 16:43 | NUR ---
Antibiotic Refusal Patient refusing oral antibiotic despite education.
[2017-01-06 19:35] VITALS: BP 113/57; PULSE 51; RESP 16; O2SAT 99
--- NOTE | 2017-01-06 22:23 | PROG NOTE ---
[address] [address] PROGRESS NOTE PATIENT: FRANKLYN PERES : 1950 MR#: [id number] ADMIT: 01/03/2017 JOB ID: [id number] DATE: 01/06/2017 SUBJECTIVE: The patient is doing well clinically. OBJECTIVE: Vital signs stable. Blood pressure 94/47, pulse 73, breathing 20, temperature 36.6, 97% on room air. The patient has really not had any further significant stool output today. LABORATORY DATA: Hemoglobin is down a little bit at 8.7. Repeat was 9.1. ASSESSMENT AND RECOMMENDATIONS: A 66-year-old male with Crohn's colitis. I think the patient could conceivably be discharged home on full dose balsalazide with the tapering course of prednisone at 40 mg per day. Short-term GI followup to help manage the taper. CBC in the next couple of weeks. Perhaps 2-3 weeks of oral iron would be appropriate as well.
[2017-01-07 00:25] VITALS: BP 140/74; PULSE 54; RESP 16; O2SAT 99
--- NOTE | 2017-01-07 02:50 | NUR ---
med refusal/pain pt refused his night time dose of IV pepcid. he said Dr. Webb is his GI doctor and he wasn't the one who ordered it so he didn't think he needed to take it but said he would be willing to talk to the hospitalist about why they put him on it. MD notified. pt has reported almost no pain this shift. he says he has no abdominal cramping at all. he says there is a persistent pain in his L side of his abdomen that is always there but even that pain is only a 1/10 at this time. he denies need for any pain medication. no N/V. pt has not had a BM this shift and there has been no signs of bleeding.
[2017-01-07 05:15] VITALS: BP 119/66; PULSE 53; RESP 16; O2SAT 100
[2017-01-07 05:31] VITALS: PULSE 52
--- NOTE | 2017-01-07 07:05 | PCM.DIMED ---
Discharge Instructions Date of Service January 07, 2017 Dates of Hospitalization January 03, 2017 at 19:24 Discharge Diagnosis Discharge Diagnosis Yersinia enterocolitica gasteroenteritis Acute Crohn's Flare Medication Instructions start prednisone taper of 40mg x 4 days, 30mg x 4 days 20mg x 4 days and 10mg x 4 days then stop Diet Heart Healthy Activity No restrictions, Other (f/u with Dr. Webb within 1 week.) Call your provider Fever or Chills, Shortness of breath, Chest pain Patient Instructions Please take oral iron twice daily for the next 30 days. This can cause constipation and you may take stool softeners for this Please take the oral prednisone taper as prescribed: 40mg x 4 days, 20mg x 4 days 10mg x [address] Webb within 1 week who will help manage your prednisone taper. Follow-up plan as above Follow-up with PCP in: 2 weeks Provider: Paddy Webb MD Follow-up in: 1 week Elvis Venegas DO January 07, 2017 07:05
[2017-01-07] MEDS ORDERED: PRE10 PO (07:11)
[2017-01-07] MEDS ORDERED: FERR-83 PO (07:11)
[2017-01-07 08:00] VITALS: PULSE 58
[2017-01-07] MEDS: Famotidine Inj 20 MG in IV Premix 1 EACH IV SCH (08:30)
[2017-01-07 08:40] VITALS: BP 124/66; PULSE 56; RESP 17; O2SAT 99
[2017-01-07] MEDS: Hydrocortisone 50 mg/mL 2 mL Inj IVPUSH SCH (09:03)
[2017-01-07] MEDS: MeTOProlol XL 25 mg ER24 Tablet PO SCH (09:03)
[2017-01-07] MEDS: Senna-Docusate 8.6-50 mg Tablet PO SCH (09:04)
--- NOTE | 2017-01-07 10:57 | NUR ---
Discharge All discharged teaching and instructions done with pt. All questions and concerns addressed. Home meds given to pt. IV d/c'd intact. Pt states that he is feeling much better and is ready to go home. No items in the safe. Hard copy of RX with the pt.
--- NOTE | 2017-01-07 11:10 | NUR ---
Social Work- Discharge Data: EMR Reviewed. Pt is on day 4 of hospitalization for crohns flare per H&P. Pt is medically stable, discharge orders are in. Pt is independent with ADLS at baseline. Pt has been up ambulating in his room, independent. [employer]ENT met with pt at bedside regarding discharge plan. Pt updated and agreeable to plan. to transport home via POV. No discharge needs identified. Assessment:Pt who is independent at baseline. Plan:Pt to discharge home with via POV. No discharge needs identified. DANNI Carreno
--- NOTE | 2017-01-07 15:18 | PCM.DC.MED ---
Discharge Summary Date of Service January 07, 2017 Dates of Hospitalization Date of Hospital Admission January 03, 2017 at 19:24 Date of Discharge: January 07, 2017 Providers: Admitting Physician: Monica Chen DO Primary Care Physician: Noble Bolivar MD Attending Physician: Monica hCen DO Diagnosis at Time of Discharge Diagnosis at Time of Discharge Yersinia enterocolitica gasteroenteritis Acute Crohn's Flare Consultations GI, Dr. Webb Brief History GI consult note 66-year-old male with a history of Crohn's disease with flares controlled with prednisone, bladder cancer s/p local resection, prostate cancer s/p prostatectomy, and CAD who presented to the emergency department with complaints of abdominal pain has been getting worse over the last 2 weeks. Patient states 5 weeks ago he began having bowel movements with some admixed with stool. He was given prednisone 40 mg a day with some resolution of the symptoms initially. After about a week he started tapering off the steroids and began having worse abdominal pain, cramping, hematochezia. Patient states that over the last couple weeks the pain has gotten worse over the last few days has gotten acutely worse. 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 Patient has not been taking NSAIDs and has not a past been less receptive to immunomodulators. Recently the patient underwent cardiac stenting as currently on Plavix. Over the last couple of days he has refused to take Plavix every other day thinking that this would help stop his bleeding. Discussion was held the patient of the importance of continuing to take Plavix due to his recent stent in October. Patient denies chest pain, shortness breath, fever, chills, dizziness, nausea/vomiting, or abdominal pain this morning. Hospital Course 1. Crohn's disease flare up, present on admission. Acute. - On hydrocortisone 100mg Q8H tapered dose to 80 BID then to prednisone on discharge. Patient started to start prednisone taper of 40mg x 4 days, 30mg x 4 days 20mg x 4 days and 10mg x 4 days then stop - Continue home dose balsalazide 750mg three tablets TID at discharge - Remicade is offered but patient declined 2. Gastroenteritis : Stool positive for yersinia enterocolitica . - dc ceftriaxone, ordered cipro BID x 5 d (last dose on 01/10), patient refused this medication at discharge after risks and benefits were discussed - Patient to follow-up with Dr. Holm 3. Acute GI bleed : monitor cbc, repeat at 4p today Bleeding is likely due to Crohn flair up. H/H repeat d/t downtrending but stabilized hematocrit of 27 to 28 at time of discharge. He will need close follow up with GI on discharge Stopping ASA and clopidogrel is not an option in the patient with stent placement 2 months ago. This was continued through his hospitalization and upon discharge patient's hemoglobin stabilized and will be repeated in the outpatient setting in a couple weeks Patient was prescribed ferrous sulfate twice a day for 30 days Chronic issues: CAD with stents - remote telemetry - continue home dose metoprolol, Plavix and aspirin continued given new stent placement -H&H Stabilized at time of discharge Patient is stable and improving. Continue current care. GI follow up . Discharge today Discharge instructions Medication Instructions start prednisone taper of 40mg x 4 days, 30mg x 4 days 20mg x 4 days and 10mg x 4 days then stop Diet Heart Healthy Activity No restrictions, Other (f/u with Dr. Webb within 1 week.) Call your provider Fever or Chills, Shortness of breath, Chest pain Patient Instructions Please take oral iron twice daily for the next 30 days. This can cause constipation and you may take stool softeners for this Please take the oral prednisone taper as prescribed: 40mg x 4 days, 20mg x 4 days 10mg x [address] Webb within 1 week who will help manage your prednisone taper. Follow-up plan as above Follow-up with PCP in: 2 weeks Provider: Paddy Webb MD Follow-up in: 1 week Exam Vital Signs (Last) Date Time Temp Pulse Resp B/P Pulse Ox O2 Delivery O2 Flow Rate FiO2 01/07/17 08:40 36.7 56 17 124/66 99 Room Air Exam General: Up in chair. NAD , pleasant HEENT : [place] is anicteric Neck : Supple, trachea is midline , no JVD Mouth: Mucous Membrane Moist/[place] Chest & Lungs: Chest Wall Normal, Clear to auscultation & percussion Cardiovascular: Exam Unremarkable, Regular Rate/Rhythm Abdomen: Nontender, Non-distended, Normoactive bowel tones Extremities: No cyanosis, no edema, no calf tenderness Neurological: Grossly Neurologically Intact Test 01/03/17 16:29 01/03/17 18:17 01/05/17 10:30 01/06/17 06:23 Prothrombin Time 10.4sec (8.1-12.5) Prothromb Time International Ratio 0.97ratio Magnesium Level 2.0mg/dL (1.6-2.6) Total Bilirubin 0.3mg/dL (0.0-1.2) Aspartate Amino Transf (AST/SGOT) 14U/L (0-50) Alanine Aminotransferase (ALT/SGPT) 16U/L (0-44) Alkaline Phosphatase 68U/L (25-160) Total Protein 7.3g/dL (6.4-8.4) Albumin 4.0g/dL (3.4-5.0) Lipase 48U/L (13-60) Urine Color Yellow (YELLOW) Urine Appearance Clear (CLEAR,HAZY) Urine pH 6.5 (5.0-8.0) Urine Specific [place] <1.005 (1.003-1.035) Urine Protein Negativemg/dL (NEG,TRACE) Urine Glucose (UA) Negativemg/dL (NEGATIVE) Urine Ketones Negativemg/dL (NEGATIVE) Urine Occult Blood Negative (NEGATIVE) Urine Nitrite Negative (NEGATIVE) Urine Bilirubin Negative (NEGATIVE) Urine Urobilinogen Normalmg/dL (NORMAL) Urine Leukocyte Esterase Negative (NEGATIVE) Urine RBC 0-2/hpf (0-2) Urine WBC 0-5/hpf (0-5) Urine Epithelial Cells Few/hpf (NONE-MOD) Urine Crystals None seen (NONE SEEN) Urine Bacteria Few/hpf (NONE-FEW) Urine Hyaline Casts None/lpf (NONE) Urine Granular Casts None seen (NONE SEEN) Urine Waxy Casts None seen (NONE SEEN) Urine Red Blood Cell Casts None seen (NONE SEEN) Urine White Blood Cell Casts None seen (NONE SEEN) Urine Mucus None seen (None Seen) Urine Trichomonas None seen (NONE SEEN) Urine Yeast None (NONE SEEN) Urinalysis Comment None Urine Culture Reflexed Not indicated Neutrophils (%) (Auto) 77.8% (40-74) Lymphocytes (%) (Auto) 14.7% (14-46) Monocytes (%) (Auto) 5.2% (4-12) Eosinophils (%) (Auto) 0% (0-5) Basophils (%) (Auto) 0.1% (0-3) Sodium Level 141mEq/L (134-144) Potassium Level 3.8mEq/L (3.5-5.2) Chloride Level 104mEq/L (97-108) Carbon Dioxide Level 28mmol/L (18-29) Blood Urea Nitrogen 23mg/dL (8-27) Creatinine 0.66mg/dL (0.76-1.27) Estimat Glomerular Filtration Rate 128mL/min (>59) Glucose Level 124mg/dL (60-99) Calcium Level 8.9mg/dL (8.5-10.1) Test 01/06/17 15:45 White Blood Count 7.9th/mm3 (3.8-10.1) Red Blood Count 3.44mil/mm3 (4.40-5.80) Hemoglobin 9.1g/dL (13.8-17.2) Hematocrit 28.3% (41.0-50.0) Mean Corpuscular Volume 82.3fL (81-100) Mean Corpuscular Hemoglobin 26.5pg (27.0-35.0) Mean Corpuscular Hemoglobin Concent 32.2% (32.0-37.0) Red Cell Distribution Width 13.9% (12.3-15.4) Platelet Count 315bil/L (150-400) Hold Purple Top Tube Received (Received) Microbiology Results Stool culture positive for yersinia enterocolitica Discharge Medications Discharge Medications ([cataplex F]) 2 TAB PO DAILY (Reported) OTC supplement ([Potassium Magnesium]) 1 TAB PO DAILY (Reported) Ascorbic Acid (Vitamin C) 500 Mg Capsule.er 1,000 MG PO DAILY (Reported) Aspirin (Aspirin) 81 Mg Tablet 81 MG PO DAILY (Reported) Balsalazide Disodium (Balsalazide Disodium) 750 Mg Capsule 750 MG PO TID ( Reported) Calcium Lactate (Calcium Lactate) 84 Mg Tablet 84 MG PO BID (Reported) Cholecalciferol (Vitamin D3) (Vitamin D3) 2,000 Unit Capsule 4,000 UNIT PO DAILY (Reported) Clopidogrel Bisulfate (Plavix) 75 Mg Tablet 75 MG PO DAILY (Reported) Ferrous Sulfate (Ferrous Sulfate) 325 Mg Tablet 325 MG PO BID Prescribed by: DOMINGA VENEGAS DO Lactobacillus Acidophilus (Probiotic) 1 Each Capsule 1 CAPSULE PO DAILY ( Reported) Lysine/Vit E/FA/Vit Bcomp&C/Zn (Lysiplex Plus Tablet) 1 Each Tablet 1 TABLET PO DAILY (Reported) Metoprolol Succinate ER (Toprol XL) 25 Mg Tablet 25 MG PO DAILY (Reported) Prednisone (PredniSONE) 10 Mg Tablet 30 MG PO DAILY Prescribed by: DOMINGA VENEGAS DO As needed Nitroglycerin SL (Nitroglycerin SL) 0.4 Mg Tab.subl 0.4 MG SL q5 x3 PRN PRN For Chest Pain (Reported) Additional med instructions start prednisone taper of 40mg x 4 days, 30mg x 4 days 20mg x 4 days and 10mg x 4 days then stop Followup Plan Follow-up plan as above Discharge Diet: Heart Healthy Discharge Activity: No restrictions, Other (f/u with Dr. Webb within 1 week. ) Patient Instructions Please take oral iron twice daily for the next 30 days. This can cause constipation and you may take stool softeners for this Please take the oral prednisone taper as prescribed: 40mg x 4 days, 20mg x 4 days 10mg x [address] Webb within 1 week who will help manage your prednisone taper. Follow-up with PCP in: 2 weeks Provider: Paddy Webb MD Follow-up in: 1 week Time spent 30 minutes spent with evaluation and management including discharge of this patient greater than 50% that time was spent [id number] Dominga Venegas DO January 07, 2017 15:18
== END 2017-01-07 10:55 | disposition home or self-care (01) | DRG 372 ==
LOC: SED 16:09 → OSC 19:24
PROVIDERS: ADMIT Internal Medicine; ATTEND Internal Medicine
DX: A04.6 Enteritis due to Yersinia enterocolitica (principal); K50.911 Crohn's disease, unspecified, with rectal bleeding; I25.10 Atherosclerotic heart disease of native coronary artery without angina pectoris; Z87.891 Personal history of nicotine dependence; Z85.46 Personal history of malignant neoplasm of prostate; Z85.51 Personal history of malignant neoplasm of bladder; D64.9 Anemia, unspecified